=== PATIENT | male | born 1990 | race Caucasian/White ===

== ENCOUNTER → 2024-09-23 20:04 | Outpatient (CLI) | payer OTHER, SELFPAY ==
--- NOTE | 2024-09-23 20:08 | DI.MRI.S_ITS ---
PROCEDURE: MR FOOT LT WO/W CON INDICATIONS: ostemiolitis and pain TECHNIQUE: Noncontrast coronal T1 spin echo and STIR, sagittal T1 spin echo with fat saturation and STIR, axial T1 spin echo and T2 fast spin echo with fat saturation. After the administration of contrast, axial/sagittal/coronal T1 spin echo with fat saturation through the left foot.. COMPARISON: [facility], [place], [place] BONE SCAN 3 PHASE, 07/21/2024, 9:58. Outside Film, MR, MR FOOT LEFT WITHOUT CONTRAST, 04/19/2024, 15:18. FINDINGS: Image quality: Excellent. Bones: There is no marrow edema. No fracture or dislocation. No metatarsal stress fractures. No bony erosion or abnormal periosteal reaction. No area of abnormal intraosseous enhancement. Soft tissues: There is significant soft tissue swelling and edema over dorsum of midfoot and forefoot. No discrete drainable peripherally enhancing abscess collection. The visualized plantar foot muscles are normal in size and signal intensity. No area of abnormal intramuscular enhancement. Extensor and flexor tendons are intact. IMPRESSION: 1. Significant cellulitis over dorsum of midfoot and forefoot. No discrete drainable abscess collection. Plantar foot muscles are normal in size and signal. 2. No evidence of osteomyelitis. No fracture or dislocation. No suspicious intraosseous lesions. No area of abnormal intraosseous enhancement. Dictated by: Donnie Lamar M.D. on 09/26/2024 at 10:06 Approved by: Donnie Lamar M.D. on 09/26/2024 at 10:18
== END ==
LOC: MRI 20:06
PROVIDERS: PCP Registered Nurse; Referring Provider Podiatrist Foot & Ankle Surgery; Visit Provider Podiatrist Foot & Ankle Surgery
DX: L03.116 Cellulitis of left lower limb (principal); M79.672 Pain in left foot
CPT/HCPCS: 73720; A9579

== ENCOUNTER 2024-10-13 06:19 | Day surgery (SDC) | payer OTHER, SELFPAY ==
[2024-10-13] VITALS (25 sets, daily range): BP systolic 100–136; BP diastolic 51–87; PULSE 10–84; RESP 8–70; TEMP 36.1–36.6; O2SAT 92–100; BMI 31.1
--- NOTE | 2024-10-13 | PATH_ITS ---
[facility] Accession Number: [id number] No. of containers..03 Tissue . 01 Material submitted: . PART A: toe - LEFT SECOND TOE, BONE (BEFORE IRRIGATION) PART B: toe - LEFT SECOND TOE, BONE (AFTER IRRIGATION) PART C: toe - LEFT SECOND TOE, TISSUE (BEFORE IRRIGATION) . 01 Diagnosis: A. LEFT SECOND TOE, BONE (BEFORE IRRIGATION): Osteocartilaginous fragments with reactive and degenerative changes. No evidence of osteomyelitis. . B. LEFT SECOND TOE, BONE (AFTER IRRIGATION): Small fragment of unremarkable cartilage. . C. LEFT SECOND TOE, TISSUE (BEFORE IRRIGATION): Skin and underlying fibroconnective tissue with ulceration. [facility] 10/20/2024 1155 Local . 01 Electronically signed: . Ngozi Fitzgerald MD, Pathologist NPI- [id number] . 01 Gross description: . A. Received in formalin with two identifiers and left second toe bone before irrigation are two fragments of martino bone with articular surface and a small amount of attached soft tissue measuring 1.7 x 0.9 x 0.5 cm and 2.3 x1.5 x 1.0 cm. Sectioning reveals martino trabecular osseous tissue that is relatively difficult to section with a scalpel. Business Systems Analyst sections are submitted in A1 following decalcification. The remaining specimen is submitted in A2-A3 following decalfication. ([id number]) B. Received in formalin with two identifiers and left second toe bone after irrigation is a thin fragment of presumed bone, 0.7 x 0.5 x 0.1 cm. Submitted intact in B1 following brief decalcification. C. Received in formalin with two identifiers and left second toe tissue before irrigation is an unorientated irregular fragment of skin, 3.5 x 2.5 x 1.3 cm, with a red-martino ulcerated friable lesion located at the margin. The margin is inked blue. Business Systems Analyst sections are submitted in C1. ([id number]) /MRV 10/18/2024 1623 Local . 01 Pathologist provided ICD-10: M86.272, L97.522 . 01 CPT . 406301, 827767, 837819, [id number], [id number] Specimen Comment: A courtesy copy of this report has been sent to [facility] Performed at: [address] [facility] [address] [address], [place], [place] [id number] MD Fernando Gregorio MD Phone: [phone]
--- NOTE | 2024-10-13 06:05 | PM.PREOP ---
Pre-operative Note Interval Note History & Physical reviewed/Exam performed by Physician: Yes Changes to H&P: No
[2024-10-13] MEDS: LACTATED RINGERS 1,000 ML 42 ML IV (06:51)
[2024-10-13 07:35] LABS: Add Manual Diff / Slide Review NO; Basophils Absolute Auto 100 /uL (0-100); Basophils Percent Auto 1.6 % (0-2); Eosinophils Absolute Auto 200 /uL (0-450); Eosinophils Percent Auto 4.9 % (2-4); Hematocrit 33.1 % (41-53); Lymphocytes Absolute Auto 1700 /uL (1100-4500); Lymphocytes Percent Auto 33.2 % (25-40); Mean Corpuscular HGB Conc 33.2 % (30-36); Mean Corpuscular Hemoglobin 27.6 PG (26-34); Mean Corpuscular Volume 83.3 fL (80-100); Monocytes Absolute Auto 600 /uL (0-900); Monocytes Percent Auto 11.7 % (3-14); Neutrophils Absolute Auto 2400 /uL (1500-7000); Neutrophils Percent Auto 48.6 % (50-75); Platelet Count 255 X10^3/uL (150-400); Red Blood Cell Count 3.97 X10^6/uL (4.5-5.9); Red Cell Distribution Width 14.9 % (11.6-14.8)
--- NOTE | 2024-10-13 07:41 | SUR.PREOP ---
Multiple IV attempts x 2 rn's. labs partially drawn per lab. sed rate and cbc. Anesthesia attempting line now.
--- NOTE | 2024-10-13 07:58 | SUR.PREOP ---
Unsuccessful attempt per anesthesia. Dr Church aware of delay. EKG being performed.
--- NOTE | 2024-10-13 08:09 | SUR.PREOP ---
#20G left upper arm us guided ivper anesthesia, Juarez Moreno CRNA.
[2024-10-13] MEDS: FAMOTIDINE 20 MG/2 ML VIAL IV (08:11)
--- NOTE | 2024-10-13 08:12 | SUR.PREOP ---
anesthesia to give iv tylenol. po tylenol not given.
[2024-10-13 08:30] LABS: Erythrocyte Sedimentation Rate 19 MM/HR (0-15)
--- NOTE | 2024-10-13 09:14 | SUR.OPER ---
Supine on padded OR bed, head on pillow, arms secured on padded arm boards at <90 degrees abduction, legs uncrossed, safety belt at thigh, tape over blanket over lower legs.
--- NOTE | 2024-10-13 09:37 | SUR.PHASEII ---
Surgery aborted by anesthesia and surgeon due to infiltration of IV placed to left upper arm. Patient to Phase 2 from OR suite and placed on continous pulse oximeter. Per Anesthesia provider, patient may be discharged at 10:15 if vitals remain stable. Coffee provided. at bedside.
--- NOTE | 2024-10-13 10:50 | DI.CT.S_ITS ---
PROCEDURE: CT ANGIO ABD AORTA RUNOFF INDICATIONS: Surgical (post-op) exam TECHNIQUE: After the administration of intravenous contrast, 2.5 mm sections acquired from T12 to the feet, with optional delayed image acquisition from the knees to the feet. 3-dimensional maximum intensity projection (MIP) coronal and sagittal reformats, and/or 3-dimensional volume rendering reformatting was then performed. For radiation dose reduction, the following was used: automated exposure control. COMPARISON: [facility], MR, MR FOOT LT WO/W CON, 09/23/2024, 20:16. [facility], CT, CT ABD PELVIS W CON, 10/27/2016, 21:29. FINDINGS: Image quality: Diagnostic Lower chest: Bibasilar opacities are present. Small hiatal hernia. Borderline cardiomegaly. Liver: Unremarkable Gallbladder and biliary system: Unremarkable, nondilated Pancreas: No ductal dilation Spleen: Prominent at 13 cm Adrenals: No discrete nodules Kidneys: No hydronephrosis. No solid renal mass Vessels and lymph nodes: No significant stenosis or thromboembolic disease of the aortoiliac vessels, mesenteric arteries, or renal arteries. Mildly enlarged pelvic lymph nodes are present, for example in the right measuring up to 1.9 cm in the external iliac chain. These were also seen to some extent in 2017. Prominent retroperitoneal lymph nodes, likely extension of the same process. Venous systems are not well assessed on this study Bowel and peritoneum: No drainable abscess or ascites. No small bowel obstruction. Increased fecal loading. Nondilated appendix. Body wall: Small fat containing umbilical hernia Pelvis: Bladder is unremarkable. Prostate is unremarkable. Bones: No aggressive appearing pelvic or spinal abnormality. There are mild degenerative changes. Lower extremities: Bones: No acute displaced fracture. Left 2nd MTP amputation changes. Soft tissues: Diffuse subcutaneous edema and soft tissue thickening extending from the pelvis, bilateral thighs, and anterior lower legs. There is no drainable rim enhancing abscess. Enlarged inguinal lymph nodes are also seen. Vasculature: Overall patent femoral popliteal vasculature. Patent calf arteries, with three-vessel runoff on the right and 2 vessel runoff on the left. On the left, the AT/DP is relatively diminutive, not necessarily acute. There is hyperemic flow to the left lower extremity compared to the right. IMPRESSION: Two vessel runoff on the left. Relatively diminutive left AT/DP, which is not necessarily acute. Hyperemic flow is seen to the left lower extremity compared to the right. No significant aortoiliac or femoral popliteal disease bilaterally Left 2nd metatarsal amputation changes. Diffuse pelvic wall and lower extremity subcutaneous soft tissue thickening and edema, no drainable fluid collections identified. Enlarged pelvic and inguinal lymph nodes, indeterminate, differential includes reactive nodes. These were also partially seen in 2017 imaging Partially seen bibasilar pulmonary opacities. Dictated by: Uche Spears M.D. on 10/13/2024 at 15:05 Approved by: Uche Spears M.D. on 10/13/2024 at 15:18
--- NOTE | 2024-10-13 10:50 | SUR.PHASEII ---
PICC line inserted by DI Nurse to right upper arm. Dr Church and OR team notified. VSS. Notified of patient. VSS.
[2024-10-13] MEDS: VANCOMYCIN 1,000 MG in SODIUM CHLORIDE 0.9% 250 ML 250 MG IV (11:40)
[2024-10-13] MEDS: LIDOCAINE 1% 20 ML INJ (11:45)
[2024-10-13] MEDS: VANCOMYCIN 1,000 MG VIAL 1000 MG TOP (12:30)
[2024-10-13] MEDS: SODIUM CHLORIDE IRRIG SOLUTION 3,000 ML, GENTAMICIN 240 MG IRR (12:45)
--- NOTE | 2024-10-13 13:01 | EKG_ITS ---
[address] [address] [address] [address] Test Date: 2024-10-13 Pat Name: Guille Fox Department: Room: Gender: Male [employer]: Fito WORRELL : 1990 Requested By: Order Number: [id number] Reading MD: Cortes Nj MD Measurements Intervals [place] Rate: 69 P: 63 WI: 162 QRS: 30 QRSD: 88 T: 21 QT: 396 QTc: 424 Interpretive Statements Normal sinus rhythm Electronically Signed On 10-13-2024 13:59:49 PDT by Cortes Nj MD
--- NOTE | 2024-10-13 13:41 | EKG_ITS ---
[facility] [address] [place] [id number] Test Date: 2024-10-13 Pat Name: Guille Fox Department: [facility] Room: 216 Gender: Male Ent Surgeon: CB : 1990 Requested By: Order Number: [id number] Reading MD: Cortes Nj MD Measurements Intervals [place] Rate: 69 P: 49 OK: 172 QRS: 18 QRSD: 86 T: 17 QT: 414 QTc: 443 Interpretive Statements Normal sinus rhythm Electronically Signed On 10-14-2024 8:37:09 PDT by Cortes Nj MD
[2024-10-13 13:48] LABS: Alanine Aminotransferase 37 IU/L (<50); Albumin 3.8 g/dL (3.5-5.0); Albumin Globulin Ratio 1.3 (1.0-2.8); Alkaline Phosphatase 79 U/L (38-126); Aspartate Aminotransferase 34 IU/L (17-59); BUN Creatinine Ratio 19.8 (6-22); Bilirubin Total 0.3 mg/dL (0.2-1.3); Blood Urea Nitrogen 17 mg/dL (9-20); C-Reactive Protein Quant < 0.5 mg/dL (<1.0); Calcium 8.3 mg/dL (8.4-10.2); Carbon Dioxide 28 mmol/L (22-32); Chloride 104 mmol/L (98-107); Creatine Kinase 91 U/L (55-170); Estimated Glomerular Filt Rate > 60 mL/min (>60); Glucose 105 mg/dL (70-100); HEMOLYSIS < 15 (0-50); Potassium 4.5 mmol/L (3.4-5.1); Sodium 137 mmol/L (137-145); Total Protein 6.8 g/dL (6.3-8.2)
[2024-10-13 13:54] LABS: NT-proBNP (BNP-Adult 18+) < 20 pg/mL (<125)
[2024-10-13] MEDS: ACETAMINOPHEN IV 1,000 MG/100 ML VIAL 400 MG IV (14:03)
[2024-10-13 14:23] LABS: Ur Specific Gravity Normal (Normal); Urine pH Normal (Normal)
--- NOTE | 2024-10-13 14:23 | RT ---
at bedside with who extubated pt without incident. pt on room air with no distress noted. Alert and talking
[2024-10-13 14:24] LABS: Ur Creatinine Normal (Normal); Urine Amphetamines Positive (Negative); Urine Barbiturates Negative (Negative); Urine Benzodiazepines Positive (Negative); Urine Cocaine Negative (Negative); Urine MDMA Positive (Negative); Urine Methadone Negative (Negative); Urine Opiates Negative (Negative); Urine Oxycodone Negative (Negative); Urine Phencyclidine Negative (Negative); Urine THC Negative (Negative); Urine Tricyclic Antidepressant Negative (Negative)
--- NOTE | 2024-10-13 14:57 | PM.PNPO.1 ---
Subjective Subjective Interval history: Patient is a 33 yo male here for amputation of toe following an on-the-job injury one year ago. Complicated by attempt this morning to do surgery, unable to place IV after multiple attempts, case cancelled. PICC RN was able to place a midline in the pre-op area, case rescheduled for later in the day. Patient has no history of asthma/BEVERLEY, states he is not a smoker of tobacco. No history hypertension or any other cardiac issues, renal or liver problems, seizures/strokes or other neurological problems. Patient admits to a history of addiction to opioids, takes Suboxone. States his last dose was 4 days ago. Denies any other recent illicit drug use, marijuana or alcohol. Patient very slow to answer questions, somewhat drowsy. Also takes cilostazol and propranolol bid, last doses this morning. General anesthesia was induced, patient intubated. Patient immediately hypotensive with SBP 72-85and bradycardic with HR of 50, unresponsive to vasopressors, fluids, antimuscarinics, very minimal response to boluses of epinephrine. Surgeon informed. Patient run on minimal anesthesia, shut off at end of case. Thirty minutes later, patient remained unresponsive, not arrousable to sternal rub. Spontaneous respirations, good Vt, ETCO2 acceptable. Fentanyl 50mcg given at beginning of case. Patient's pupils very large but equal. No other responses to stimulus. Transported intubated to PACU. RT called, placed on CPAP via ventilator. Labs drawn, repeat 12-lead, urine toxicology screen ordered. BS 107. Surgeon at bedside, informed of status. Patient slowly began responding to stimuli 75 min post op. Following verbal commands, answering yes/no questions, but quickly falling back asleep. Pupils normal. Watched for 15 more minutes, patient stable, arrousable. Extubated without difficulty. Patient remained slow to answer, sleepy but otherwise stable, maintaining airway without difficulty. Patient transferred to floor for overnight admission. Exam Vital Signs (past 8 hours): - 10/13/24 06:59 10/13/24 09:25 10/13/24 09:30 Temperature 98 F 98 F Pulse Rate 84 69 73 Respiratory Rate 16 11 L 16 Blood Pressure 136/86 119/80 119/68 Pulse Oximetry 95 100 98 Oxygen Delivery Method Room Air Room Air Room Air Oxygen Flow Rate Fraction of Inspired Oxygen 10/13/24 10:51 10/13/24 12:50 10/13/24 12:55 Temperature 97.3 F L 97.3 F L Pulse Rate 82 61 60 Respiratory Rate 11 L 12 9 L Blood Pressure 104/65 102/51 L 105/58 L Pulse Oximetry 97 99 100 Oxygen Delivery Method Room Air Simple Mask Blow By Simple Mask Blow By Oxygen Flow Rate 9 9 Fraction of Inspired Oxygen 10/13/24 13:00 10/13/24 13:05 10/13/24 13:10 Temperature Pulse Rate 59 L 60 60 Respiratory Rate 8 L 10 L 8 L Blood Pressure 104/59 L 104/59 L 104/60 Pulse Oximetry 100 99 99 Oxygen Delivery Method Simple Mask Blow By Simple Mask Blow By Simple Mask Blow By Oxygen Flow Rate 9 9 9 Fraction of Inspired Oxygen 10/13/24 13:20 10/13/24 13:30 10/13/24 13:35 Temperature Pulse Rate 61 81 10 L Respiratory Rate 8 L 15 70 H Blood Pressure 100/61 122/67 117/80 Pulse Oximetry 99 98 98 Oxygen Delivery Method Simple Mask Blow By CPAP CPAP Oxygen Flow Rate 9 Fraction of Inspired Oxygen 10/13/24 13:38 10/13/24 13:40 10/13/24 13:45 Temperature 97.3 F L Pulse Rate 70 74 Respiratory Rate 11 L 16 Blood Pressure 115/68 121/70 Pulse Oximetry 99 99 Oxygen Delivery Method CPAP Room Air Oxygen Flow Rate Fraction of Inspired Oxygen 30 10/13/24 13:45 10/13/24 13:50 10/13/24 13:55 Temperature Pulse Rate 72 74 Respiratory Rate 16 14 Blood Pressure 104/58 L 120/65 Pulse Oximetry 99 97 95 Oxygen Delivery Method Room Air Room Air Oxygen Flow Rate Fraction of Inspired Oxygen 10/13/24 14:05 10/13/24 14:15 Temperature Pulse Rate 78 74 Respiratory Rate 13 14 Blood Pressure 130/87 106/65 Pulse Oximetry 96 95 Oxygen Delivery Method Room Air Room Air Oxygen Flow Rate 9 9 Fraction of Inspired Oxygen Fraction of Inspired Oxygen 30 Oxygen Delivery Method Room Air Oxygen Flow Rate 9 Resp Other: Post operatively taken to PACU intubated. Extubated 90 minutes later without difficulty. Objective ECG Impression: NSR. 12-lead EKG unchanged from pre-op. Labs 10/13/24 07:20 10/13/24 13:20 Labs: Laboratory Results - last 24 hr 10/13/24 10/13/24 10/13/24 07:20 13:16 13:20 WBC 5.0 RBC 3.97 L Hgb 11.0 L Hct 33.1 L MCV 83.3 MCH 27.6 MCHC 33.2 RDW 14.9 H Plt Count 255 Neut % (Auto) 48.6 L Lymph % (Auto) 33.2 [place] % (Auto) 11.7 Eos % (Auto) 4.9 H Baso % (Auto) 1.6 Neut # (Auto) 2400 Lymph # (Auto) 1700 [place] # (Auto) 600 Eos # (Auto) 200 Baso # (Auto) 100 ESR 19 H Sodium 137 Potassium 4.5 Chloride 104 Carbon Dioxide 28 BUN 17 Creatinine 0.86 Estimated GFR > 60 BUN/Creatinine Ratio 19.8 Glucose 105 H Calcium 8.3 L Total Bilirubin 0.3 AST 34 ALT 37 Alkaline Phosphatase 79 Total Creatine Kinase 91 C-Reactive Protein < 0.5 NT-Pro-B Natriuret Pep < 20 Total Protein 6.8 Albumin 3.8 Globulin 3.0 Albumin/Globulin Ratio 1.3 U Opiates 300ng/mL cut Negative Ur Oxycodone Screen Negative Urine Methadone Screen Negative Ur Barbiturates Screen Negative U Tricyclic Antidepress Negative Ur Phencyclidine Scrn Negative Ur Amphetamines Screen Positive H U Methamphetamines Scrn Positive H Ur MDMA Scrn (Ecstasy) Positive H U Benzodiazepines Scrn Positive H Urine Cocaine Screen Negative U Marijuana (THC) Screen Negative Urine pH Normal Urine Specific [place] Normal Ur Creatinine Normal [facility] History (Updated 10/13/24 @ 09:45 by Daylin Gonzalez RN) Substance abuse MRSA (methicillin resistant Staphylococcus aureus) infection (2023) Osteomyelitis (2023) Social History alcohol intake: current Assessment & Plan Post-op Postoperative Procedures: Procedures Operation Date: 10/13/24 07:45 Actual Procedure Side Surgeon p 2nd Toe Amputation & metatarsal excision Left Malik Church DPM Operation Date: 10/13/24 11:15 Actual Procedure Side Surgeon p 2nd Toe Amputation & metatarsal excision Left Malik Church DPM Postoperative day: 0
[2024-10-13] MEDS: HYDROMORPHONE 1 MG INJ IV ×2 (15:22→20:11)
--- NOTE | 2024-10-13 16:25 | PM.CN ---
History of Present Illness Consult details Date Patient Seen: 10/13/24 Time Patient Seen: 16:25 Chief complaint: SDC Reason for consult: Post op pain and difficulty extubating. Narrative: The patient is a 33-year-old male with a history of continuous opiate dependence he was on Suboxone chronically. He was status post amputation of the toe for a persistent foot infection. He was grown out MSSA and Pseudomonas in the past. He was followed by Dr. Calzada of ID at [facility]. The patient was difficult to extubate after his case, and only received etomidate. He converted oxycodone 1 day prior to his case if 15 mg Q 8 and stopped Suboxone 2 days prior. The patient ultimately did extubate in PACU in presents to the floor with stable vital signs and severe foot pain. He was given Dilaudid IV upon arrival. The patient had multiple substances on his UTox including methamphetamines but denies any use of any medications or drugs other than the oxycodone. I spoke with the surgeon, Dr. Church, and he did share ID recommendations as well as Dr. Mac of pain medicine in [place] recommendations for oxycodone 15 mg t.i.d. for postoperative pain and then after stopping for 2 days resumption of Suboxone when this is permissible. The patient lives with his girlfriend in [place]. The patient had a toe amputation for a chronic wound which apparently relates initially to a work injury that occurred in November 2023. The patient developed osteomyelitis and has received antibiotics from Infectious Disease. The patient has had IV antibiotics. Apparently he then developed osteomyelitis and was treated with hyperbaric oxygen in May and June. The infection has worsened and ultimately Podiatry recommended a toe amputation, this happened today. The operative note is not available for review at the time of this consult. Meds Home Medications and Allergies Home Medications Medication Instructions Recorded Confirmed Type buprenorphine 8 mg-naloxone 2 mg 1 film buccal TID 09/23/24 09/23/24 History sublingual film duloxetine 60 mg capsule,delayed 60 mg PO DAILY 09/23/24 10/13/24 History release gabapentin 600 mg tablet 600 mg PO TID 09/23/24 10/13/24 History propranolol 40 mg tablet 40 mg PO BID 09/23/24 10/13/24 History sulfamethoxazole 800 1 tab PO BID 09/23/24 09/23/24 History mg-trimethoprim 160 mg tablet (Bactrim DS) cefadroxil 1 gram tablet 1,000 mg PO BID #60 tabs 10/12/24 10/13/24 Rx cilostazol 50 mg tablet 50 mg PO BID 10/12/24 10/13/24 History buprenorphine 8 mg-naloxone 2 mg 10 mg sublingual 3XD 10/13/24 10/13/24 History sublingual film Allergies Allergy/AdvReac Type Severity Reaction Status Date / Time No Known Drug Allergies Allergy Verified 10/13/24 06:41 Review of Systems Review of Systems Narrative: All else reviewed and otherwise unremarkable except as noted in the history and physical. Exam Vital Signs (past 8 hours): - 10/13/24 09:25 10/13/24 09:30 10/13/24 10:51 Temperature 98 F Pulse Rate 69 73 82 Respiratory Rate 11 L 16 11 L Blood Pressure 119/80 119/68 104/65 Pulse Oximetry 100 98 97 Oxygen Delivery Method Room Air Room Air Room Air Oxygen Flow Rate Fraction of Inspired Oxygen 10/13/24 12:50 10/13/24 12:55 10/13/24 13:00 Temperature 97.3 F L 97.3 F L Pulse Rate 61 60 59 L Respiratory Rate 12 9 L 8 L Blood Pressure 102/51 L 105/58 L 104/59 L Pulse Oximetry 99 100 100 Oxygen Delivery Method Simple Mask Blow By Simple Mask Blow By Simple Mask Blow By Oxygen Flow Rate 9 9 9 Fraction of Inspired Oxygen 10/13/24 13:05 10/13/24 13:10 10/13/24 13:20 Temperature Pulse Rate 60 60 61 Respiratory Rate 10 L 8 L 8 L Blood Pressure 104/59 L 104/60 100/61 Pulse Oximetry 99 99 99 Oxygen Delivery Method Simple Mask Blow By Simple Mask Blow By Simple Mask Blow By Oxygen Flow Rate 9 9 9 Fraction of Inspired Oxygen 10/13/24 13:30 10/13/24 13:35 10/13/24 13:38 Temperature Pulse Rate 81 10 L Respiratory Rate 15 70 H Blood Pressure 122/67 117/80 Pulse Oximetry 98 98 Oxygen Delivery Method CPAP CPAP Oxygen Flow Rate Fraction of Inspired Oxygen 30 10/13/24 13:40 10/13/24 13:45 10/13/24 13:45 Temperature 97.3 F L Pulse Rate 70 74 Respiratory Rate 11 L 16 Blood Pressure 115/68 121/70 Pulse Oximetry 99 99 99 Oxygen Delivery Method CPAP Room Air Oxygen Flow Rate Fraction of Inspired Oxygen 10/13/24 13:50 10/13/24 13:55 10/13/24 14:05 Temperature Pulse Rate 72 74 78 Respiratory Rate 16 14 13 Blood Pressure 104/58 L 120/65 130/87 Pulse Oximetry 97 95 96 Oxygen Delivery Method Room Air Room Air Room Air Oxygen Flow Rate 9 Fraction of Inspired Oxygen 10/13/24 14:15 10/13/24 14:30 10/13/24 15:00 Temperature 97.1 F L 97.7 F Pulse Rate 74 72 77 Respiratory Rate 14 16 15 Blood Pressure 106/65 118/71 126/66 Pulse Oximetry 95 96 95 Oxygen Delivery Method Room Air Oxygen Flow Rate 9 0 0 Fraction of Inspired Oxygen 10/13/24 15:30 Temperature 97.4 F L Pulse Rate 69 Respiratory Rate 15 Blood Pressure 125/68 Pulse Oximetry 98 Oxygen Delivery Method Oxygen Flow Rate 0 Fraction of Inspired Oxygen Fraction of Inspired Oxygen 30 Oxygen Delivery Method Room Air Oxygen Flow Rate 0 Narrative Exam Narrative: NAD, alert and oriented, fluent speech, calm. Normocephalic skull, EOMI, anicteric sclera, symmetric pupils. Oropharynx unremarkable, no droop. Neck supple, midline trachea, no adenopathy. Lungs clear, normal rate and effort. Heart regular, no murmur gallop or rub. Abdomen is soft, non distended and non tender. Extremities are free of edema. Skin is free of rash or lesions. Joints are not swollen or deformed. Judgment appears to be normal. Left foot is wrapped. Patient was extensive chronic stigmata of drug use on the inner aspects and anterior aspects of both thighs. Objective Imaging Multiple studies:: Radiologist's impression: Aorta with runoff CTA, October 13: Two vessel runoff on the left. Relatively diminutive left AT/DP, which is not necessarily acute. Hyperemic flow is seen to the left lower extremity compared to the right. No significant aortoiliac or femoral popliteal disease bilaterally Left 2nd metatarsal amputation changes. Diffuse pelvic wall and lower extremity subcutaneous soft tissue thickening and edema, no drainable fluid collections identified. Enlarged pelvic and inguinal lymph nodes, indeterminate, differential includes reactive nodes. These were also partially seen in 2017 imaging Partially seen bibasilar pulmonary opacities. Foot MRI, September 23: 1. Significant cellulitis over dorsum of midfoot and forefoot. No discrete drainable abscess collection. Plantar foot muscles are normal in size and signal. 2. No evidence of osteomyelitis. No fracture or dislocation. No suspicious intraosseous lesions. No area of abnormal intraosseous enhancement. Dictated by: Donnie Lamar M.D. on 09/26/2024 at 10:06 Approved by: Donnie Lamar M.D. on 09/26/2024 at 10:18 ADDENDUM: There is T2 hyperintense signal seen involving 2nd distal phalanx without associated T1 hypointense signal. No obvious bony erosive changes. Questionable enhancement is noted within 2nd distal phalanx. Finding may represent artifacts due to the position of the foot and patient motion. Early osteomyelitis involving 2nd distal phalanx cannot be excluded. Clinical correlation is recommended. There are no signs of septic arthritis Labs 10/13/24 07:20 10/13/24 13:20 Labs: Laboratory Results - last 24 hr 10/13/24 10/13/24 10/13/24 07:20 13:16 13:20 WBC 5.0 RBC 3.97 L Hgb 11.0 L Hct 33.1 L MCV 83.3 MCH 27.6 MCHC 33.2 RDW 14.9 H Plt Count 255 Neut % (Auto) 48.6 L Lymph % (Auto) 33.2 Bond % (Auto) 11.7 Eos % (Auto) 4.9 H Baso % (Auto) 1.6 Neut # (Auto) 2400 Lymph # (Auto) 1700 Bond # (Auto) 600 Eos # (Auto) 200 Baso # (Auto) 100 ESR 19 H Sodium 137 Potassium 4.5 Chloride 104 Carbon Dioxide 28 BUN 17 Creatinine 0.86 Estimated GFR > 60 BUN/Creatinine Ratio 19.8 Glucose 105 H Calcium 8.3 L Total Bilirubin 0.3 AST 34 ALT 37 Alkaline Phosphatase 79 Total Creatine Kinase 91 C-Reactive Protein < 0.5 NT-Pro-B Natriuret Pep < 20 Total Protein 6.8 Albumin 3.8 Globulin 3.0 Albumin/Globulin Ratio 1.3 U Opiates 300ng/mL cut Negative Ur Oxycodone Screen Negative Urine Methadone Screen Negative Ur Barbiturates Screen Negative U Tricyclic Antidepress Negative Ur Phencyclidine Scrn Negative Ur Amphetamines Screen Positive H U Methamphetamines Scrn Positive H Ur MDMA Scrn (Ecstasy) Positive H U Benzodiazepines Scrn Positive H Urine Cocaine Screen Negative U Marijuana (THC) Screen Negative Urine pH Normal Urine Specific [place] Normal Ur Creatinine Normal PFSH Medical History Substance abuse MRSA (methicillin resistant Staphylococcus aureus) infection (2023) Osteomyelitis (2023) Social History marital status: unmarried,living together pets and animals: Yes (1 Nimisha) Tobacco & Substance Use Smoking Status: Former smoker alcohol intake: current Assessment & Plan Assessment & Plan narrative: 1. 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 Present on admission and active. 2. Concern for osteomyelitis, present on admission and active. 3. Continuous opiate dependence, present on admission and active. Recently on Suboxone. 4. Concern for polysubstance abuse based on a urine toxicity screen. Plan: -treat pain tonight with oxycodone 15 q.6 as needed, Dilaudid IV as needed pain. -infectious Disease has requested IV antibiotics tonight, cefepime and daptomycin at 8 milligrams/kilogram IV daily. Recent cultures had review Pseudomonas, S MSSA, and Corynebacterium by PCR. -the patient remains [facility] [place] status, pending review tomorrow morning of clinical course. The patient was full resuscitation. This case was discussed directly with the surgeon, Dr. Church, and the infectious disease doctor, Dr. Calzada. This patient might require more extensive treatment with IV antibiotics for soft tissue infection based on imaging studies today, and clinical status. We will assess whether or not he would be appropriate for inpatient status within the next 24 hours. Time-Based Coding :: 45 min spent with patient and on the chart (including review of chart, obtaining history, exam, reviewing outside data, placing orders, documenting exam and treatment plan, and counseling patient) on 10/13.
--- NOTE | 2024-10-13 16:38 | DI.US.S_ITS ---
PROCEDURE: US PERIPH VENOUS LOW EXTREM BI INDICATIONS: EDEMA TECHNIQUE: Real-time imaging, as well as color and pulse Doppler interrogation, were performed of the deep veins of both legs from the inguinal ligament to the popliteal fossa, with documentation of the visualized calf veins. COMPARISON: None. FINDINGS: Right: The common femoral, femoral, popliteal, and the visualized calf veins are normally compressible, and free of intraluminal thrombus. Color and pulse Doppler demonstrate normal phasic intravascular flow. There is normal augmentation response to distal compression maneuver. Left: The common femoral, femoral, popliteal, and the visualized calf veins are normally compressible, and free of intraluminal thrombus. Color and pulse Doppler demonstrate normal phasic intravascular flow. There is normal augmentation response to distal compression maneuver. Calf veins are not well seen. Enlarged lymph nodes in the bilateral groins measuring up to 6.4 x 5.5 x 1.4 cm on the right and 2.9 x 1.6 x 1.3 cm on the left. IMPRESSION: No findings of deep venous thrombosis in either lower extremity. Enlarged inguinal lymph nodes as above. Dictated by: Karlos Landeros M.D. on 10/13/2024 at 18:32 Approved by: Karlos Landeros M.D. on 10/13/2024 at 18:33
[2024-10-13] MEDS: GABAPENTIN 600 MG TABLET PO ×2 (16:44→20:10)
[2024-10-13] MEDS: OXYCODONE IR 10 MG TABLET 15 MG PO ×2 (16:44→22:56)
[2024-10-13] MEDS: CEFEPIME 2 GM in SODIUM CHLORIDE 0.9% 100 ML IV (17:29)
[2024-10-13] MEDS: CHLORHEXIDINE GLUCONATE 15 ML CUP PO (17:29)
[2024-10-13] MEDS: SODIUM CHLORIDE 0.9% IV (18:24)
[2024-10-13] MEDS: DAPTOMYCIN IV (18:24)
[2024-10-13] MEDS: PROPRANOLOL 10 MG TABLET 40 MG PO (20:10)
[2024-10-13] MEDS: SENNOSIDES 8.6 MG TABLET 17.2 MG PO (20:10)
[2024-10-13] MEDS: DOCUSATE 100 MG CAPSULE PO (20:10)
[2024-10-13] MEDS: SODIUM CHLORIDE 0.9% FLUSH 10 ML IV (20:12)
[2024-10-13] MEDS: ACETAMINOPHEN 325 MG TABLET 650 MG PO (22:56)
[2024-10-14] MEDS: CHLORHEXIDINE GLUCONATE 15 ML CUP PO ×2 (00:35→05:44)
[2024-10-14] MEDS: CEFEPIME 2 GM in SODIUM CHLORIDE 0.9% 100 ML IV ×2 (01:06→09:56)
[2024-10-14] MEDS: HYDROMORPHONE 1 MG INJ IV ×7 (01:15→16:21)
--- NOTE | 2024-10-14 06:20 | PM.OP.1 ---
Operative Date/Time/Diagnoses Date of procedure: 10/13/24 Pre-op diagnosis: 1. Left second toe chronic ulcer 2. Left second toe infection (soft tissue and bone) 3. Left foot pain Post-op diagnosis: same Procedure & Clinicians Procedure: 1. Left second toe amputation 2. Left second metatarsal head ostectomy Same procedure as scheduled: Yes Indications: Pain with chronic non-healing ulcer and infections Surgeon: Malik Church Click Yes if Unassisted: Yes Anesthesia Type: Local Operative Notes Closure Type: primary Specimen(s): other (1. Soft tissue to pathology and micrology before irrigation. 2. Bone to pathology and microbiology before irrigation. 3. Bone to pathology and microbiology after irrigation. 4. Swab to microbiology after irrigation.) Estimated Blood Loss (mL): 25 Procedure in detail: Patient was identified and brought into the operating room. Patient was in supine position for the duration of procedure. An ankle tourniquet was applied but not inflated for this case. Left foot was prepped and draped in the usual sterile fashion, followed by official timeout with the surgical team all in agreement. Attention was carried to the left second toe with chronic ulcer. A racquet incision was drawn and carried out using # 15 scalpel down to the bone and joint, which was disarticulated at the metatarsophalangeal joint. Removed toe was dissected with bisection at midline on the back table, and removed phalanges and soft tissue were sent to pathology and microbiology respectively. Removed toe was notable for extensive scar tissue and necrotic fat. Open surgical site was irrigated using 3 liters of saline mixed with 240 mg gentamicin solution. All outer gloves were replaced with new sterile glove, and previously used instruments were set aside. A sagittal saw was used to remove a sliver of metatarsal head, which was sent to both microbiology and pathology for proximal margin after irrigation. A deep wound culture of the open surgical site was also obtained, followed by placement of vancomycin powder prior to closure using 3-0 vicryl and 3-0 prolene. Procedure site was cleaned, and bulky sterile dressing was applied using iodine soaked Adaptic, gauze, and Kerlix. A posterior splint was made and fitted over well-padded surface with cast padding and abdominal pad. Surgery was uncomplicated, and patient was extubated in PACU 90 minutes later. Complications: none Post-operative Condition: stable Disposition: observation Plan for aftercare: Non-weight bearing to surgical limb. Elevative above heart on 2+ pillows. Ice behind knee 15 minutes/hour.
[2024-10-14] MEDS: DULOXETINE 30 MG CAPSULE 60 MG PO (08:12)
[2024-10-14] MEDS: PROPRANOLOL 10 MG TABLET 40 MG PO (08:12)
[2024-10-14] MEDS: ENOXAPARIN 40 MG/0.4 ML SYRINGE SUBCUT (08:12)
[2024-10-14] MEDS: GABAPENTIN 600 MG TABLET PO ×2 (08:12→14:47)
[2024-10-14] MEDS: DOCUSATE 100 MG CAPSULE PO (08:12)
[2024-10-14 08:15] VITALS: O2SAT 96
[2024-10-14 08:25] VITALS: BP 112/61; PULSE 69; RESP 15; TEMP 36.4; O2SAT 96
--- NOTE | 2024-10-14 12:03 | OT.IPNOTE ---
Attempted OT eval and pre pt states has no OT needs and mainly just concerned with getting a FWW and to be able to try steps with a cane. Nursing able to put in PT eval orders. Pt given DME equipment list. Requested orders for FWW for pt. NO charge.
--- NOTE | 2024-10-14 12:37 | CM.DANOTE ---
Addendum entered by SANDY Hill 10/14/24 16:15: DCP Continued: Per PT, FWW is dispensed and provided at bedside. Pt is now requesting a prescription for an iWalk handsfree knee crutch. DCP notified hospitalist of this request, recommended that pt follow up with podiatry surgeon about this. DCP called some [employer] library resources who loan equipment: DCP called [employer] in [place], it is reported they do not have iWalk in their inventory. DCP called [employer], it is reported they do not have iWalk in their inventory. DCP called [facility] in [place], it is reported they do not have iWalk in their inventory. DCP called [facility], it is reported they do not have iWalk in their inventory. DCP re-entered room, provided DME resource list (noted which locations have been queried about iWalk in inventory) and [place] non-emergency phone number for lift assist if necessary, pt appreciative. 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 Pt denies any other needs at this time, DCP answered all questions and concerns to best of ability. Plan: Pt to dc home with , has FWW to utilize until follow up with Developmental Specialist on Thursday, 10/17. MARCIA Aranda Original Note: DCP Assessment Note: Pt is a 33yo male, resident of [place], is POD1 left toe amputation due to an infection. Pt lives in an apartment with his spouse, Alison Cunningham. Pt's Primary Care Provider is Dr. Leo Collins and insurance is [employer] and [employer]. Reviewed chart and discussed with multidisciplinary team pt's medical status and initial discharge needs. DCP met w/patient at bedside; introduced self and role. Patient was found in bed, kept eyes closed but cooperative with assessment. Pt's , Alison, was present and pt consented for her to be primary historian. Pt and confirmed living situation, stating they live in an apartment with 15-20 steps to their unit. Pt expressed preference in discharge home when pain is managed (currently at a 8 and getting IV pain meds every two hours). Pt also requesting a cane or walker to be dispensed via his insurance to assist with the steps up to his apartment, he has a knee scooter he is renting from the wound clinic (due back next week). DCP consulted with hospitalist who gave verbal orders for PT/OT consultation. Per OT, pt would benefit from FWW and discussion with PT. DCP placed FWW orders as well. Plan:Discharge orders are in, anticipating dc home with spouse to transport when medically cleared. CM team will follow closely for coordination of discharge plans. Sheila Hicks TREKKING GUIDE Discharge Planning/Care Management CM Discharge Assessment Start: 10/14/24 10:57 Freq: Status: Active Protocol: Document 10/14/24 10:57 MW (Rec: 10/14/24 11:01 MW Desktop) Discharge Planning Assessment Assigned Chief Wellness Officer SANDY Sosa DPOA/Assigned Designee Name Alison Cunningham, Spouse Contact Information [phone] Advance Directives? No Advance Directives on File No History Provided By Patient,Family Member,Medical Record Has Patient been admitted in last 30 No days? Prior Living Arrangements Apartment/Condo Comment [place] Household Members spouse Type of transporation used prior to Relies on Others admit Independent with ADL's Yes Is patient alert and oriented? Yes Caregiver for Another No Comment Renting a knee scooter from wound clinic, has a walking boot. Requesting a cane/ Rollator to assist with going up stairs. Barriers to Discharge No Discharge Plan Home Transportation Arrangement Spouse can drive home Additional Comment DME resource list provided Whiteboard Updated in Patient Room with Yes name and ext. # of Chief Wellness Officer Review Status In Process Please Provide Date Initial DC 10/14/24 Assessment Was Performed Next Review Type Continued Stay Review
--- NOTE | 2024-10-14 13:01 | P.DS_ITS ---
History of Present Illness History of Present Illness Date Patient Seen: 10/14/24 Time Patient Seen: 09:15 Chief complaint: SDC Narrative: The patient is a 33-year-old male with a history of continuous opiate dependence he was on Suboxone chronically. He was status post amputation of the toe for a persistent foot infection. He was grown out MSSA and Pseudomonas in the past. He was followed by Dr. Calzada of ID at [facility]. The patient was difficult to extubate after his case, and only received etomidate. He converted oxycodone 1 day prior to his case if 15 mg Q 8 and stopped Suboxone 2 days prior. The patient ultimately did extubate in PACU in presents to the floor with stable vital signs and severe foot pain. He was given Dilaudid IV upon arrival. The patient had multiple substances on his UTox including methamphetamines but denies any use of any medications or drugs other than the oxycodone. I spoke with the surgeon, Dr. Church, and he did share ID recommendations as well as Dr. Mac of pain medicine in [place] recommendations for oxycodone 15 mg t.i.d. for postoperative pain and then after stopping for 2 days resumption of Suboxone when this is permissible. The patient lives with his girlfriend in [place]. The patient had a toe amputation for a chronic wound which apparently relates initially to a work injury that occurred in November 2023. The patient developed osteomyelitis and has received antibiotics from Infectious Disease. The patient has had IV antibiotics. Apparently he then developed osteomyelitis and was treated with hyperbaric oxygen in May and June. The infection has worsened and ultimately Podiatry recommended a toe amputation, this happened today. The operative note is not available for review at the time of this consult. Discharge Providers Provider Discharge Date: 10/14/24 Primary care physician: Leo Collins ND Consults: 10/13/24 15:35 Consult to HUMAN RESOURCE CONSULTANT - Corporate Communications Manager Routine Comment: Corporate Communications Manager Consult needed for:: Unemployed Other reason (Comment) Comment: pt states he is unable to work due to injury and is concerned about losing housing 10/14/24 11:13 Consult to Occupational Therapy Evaluate & Treat Comment: Physician Instructions: Evaluate and treat 10/14/24 11:44 Consult to Physical Therapy Evaluate & Treat Comment: Physician Instructions: Evaluate and Treat 10/14/24 12:03 Consult to Physical Therapy Evaluate & Treat Comment: DME (Cane/FWW) needed for stairs and ambulation Physician Instructions: Evaluate and Treat Discharge provider: Nickolas Brooks MD Summary Hospital Course Discharge Diagnosis: 1. 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 Present on admission and active. 2. Concern for osteomyelitis, present on admission and active. 3. Continuous opiate dependence, present on admission and active. 4. Concern for polysubstance abuse based on a urine toxicity screen. Hospital Course: The patient was admitted and observed overnight. He was continued on his usual oxycodone as well as IV Dilaudid for postoperative pain. Given appropriate surgical management of his infection patient was discharged on oral antibiotics with outpatient follow-up of cultures and determination of further treatment per Infectious Disease recommended, in discussion with Dr. Church by phone prior to discharge. Physical therapy assisted with appropriate DME for ambulation following discharge. The patient has a addiction medicine physician prescribing Suboxone and pain management per Podiatry at discharge. The patient acknowledged understanding, agreement and appreciation of this plan of care. Status at Discharge Cognitive/behavioral status at discharge: oriented Functional status at discharge: uses cane/walker Overall status at discharge: patient is back to baseline Time Spent with Patient Time spent: Less than 30 minutes Exam Vital Signs (past 8 hours): - 10/14/24 08:15 10/14/24 08:25 Temperature 97.6 F Pulse Rate 69 Respiratory Rate 15 Blood Pressure 112/61 Pulse Oximetry 96 96 Oxygen Delivery Method Room Air Oxygen Flow Rate 0 Fraction of Inspired Oxygen 30 Oxygen Delivery Method Room Air Oxygen Flow Rate 0 Narrative Exam Narrative: NAD, alert and oriented, fluent speech, calm. Normocephalic skull, EOMI, anicteric sclera, symmetric pupils. Oropharynx unremarkable, no droop. Neck supple, midline trachea, no adenopathy. Lungs clear, normal rate and effort. Heart regular, no murmur gallop or rub. Abdomen is soft, non distended and non tender. Extremities are free of edema. Skin is free of rash or lesions. Joints are not swollen or deformed. Judgment appears to be normal. Left foot is wrapped. Patient was extensive chronic stigmata of drug use on the inner aspects and anterior aspects of both thighs. Objective Imaging Multiple studies:: Radiologist's impression: Aorta with runoff CTA, October 13: Two vessel runoff on the left. Relatively diminutive left AT/DP, which is not necessarily acute. Hyperemic flow is seen to the left lower extremity compared to the right. No significant aortoiliac or femoral popliteal disease bilaterally Left 2nd metatarsal amputation changes. Diffuse pelvic wall and lower extremity subcutaneous soft tissue thickening and edema, no drainable fluid collections identified. Enlarged pelvic and inguinal lymph nodes, indeterminate, differential includes reactive nodes. These were also partially seen in 2017 imaging Partially seen bibasilar pulmonary opacities. Foot MRI, September 23: 1. Significant cellulitis over dorsum of midfoot and forefoot. No discrete drainable abscess collection. Plantar foot muscles are normal in size and signal. 2. No evidence of osteomyelitis. No fracture or dislocation. No suspicious intraosseous lesions. No area of abnormal intraosseous enhancement. There is T2 hyperintense signal seen involving 2nd distal phalanx without associated T1 hypointense signal. No obvious bony erosive changes. Questionable enhancement is noted within 2nd distal phalanx. Finding may represent artifacts due to the position of the foot and patient motion. Early osteomyelitis involving 2nd distal phalanx cannot be excluded. Clinical correlation is recommended. There are no signs of septic arthritis Labs 10/13/24 07:20 10/13/24 13:20 Labs: Laboratory Results - last 24 hr 10/13/24 10/13/24 13:16 13:20 Sodium 137 Potassium 4.5 Chloride 104 Carbon Dioxide 28 BUN 17 Creatinine 0.86 Estimated GFR > 60 BUN/Creatinine Ratio 19.8 Glucose 105 H Calcium 8.3 L Total Bilirubin 0.3 AST 34 ALT 37 Alkaline Phosphatase 79 Total Creatine Kinase 91 C-Reactive Protein < 0.5 NT-Pro-B Natriuret Pep < 20 Total Protein 6.8 Albumin 3.8 Globulin 3.0 Albumin/Globulin Ratio 1.3 U Opiates 300ng/mL cut Negative Ur Oxycodone Screen Negative Urine Methadone Screen Negative Ur Barbiturates Screen Negative U Tricyclic Antidepress Negative Ur Phencyclidine Scrn Negative Ur Amphetamines Screen Positive H U Methamphetamines Scrn Positive H Ur MDMA Scrn (Ecstasy) Positive H U Benzodiazepines Scrn Positive H Urine Cocaine Screen Negative U Marijuana (THC) Screen Negative Urine pH Normal Urine Specific [employer] Normal Ur Creatinine Normal [facility] Medical History MRSA (methicillin resistant Staphylococcus aureus) infection (2023) Osteomyelitis (2023) Substance abuse Social History marital status: unmarried,living together household members: spouse pets and animals: Yes (1 Nimisha) Smoking Status: Former smoker alcohol intake: current Discharge Plan Discharge Plan Patient Disposition: Home Discharge orders & Medications Discharge Orders: Discharge (Order); Ordered 10/13/24 Ordered By: Malik Church Prescriptions: New cefadroxil 1 gram tablet 1,000 mg PO BID Qty: 60 0RF Continued gabapentin 600 mg Tablet 600 mg PO TID propranolol 40 mg Tablet 40 mg PO BID duloxetine 60 mg Capsule,Delayed Release(Dr/Ec) 60 mg PO DAILY buprenorphine-naloxone 8-2 mg Film 1 film BUCCAL TID sulfamethoxazole-trimethoprim [Bactrim DS] 800-160 mg Tablet 1 tab PO BID cilostazol 50 mg Tablet 50 mg PO BID buprenorphine-naloxone 8-2 mg film 10 mg sublingual 3XD Follow up/Referrals: Leo Collins ARNP [Primary Care Provider] - Diet/Activity/Treatments Diet: Diet as Tolerated and Regular Activity: Non-weight bearing to surgical limb. Elevate surgical limb above heart on 2+ pillows. Cold/Heat Therapy: Ice behind knee 15 minutes/hour when awake. Skin/Wound/Dressing Care Report to your healthcare provider any signs of infection, such as:: chills, fever, night sweats, increased pain, unusual drainage and unusual redness Dressing: Keep dressing clean, dry, and intact. Visit Report/Discharge Packet Stand Alone Forms: Patient Portal/API Discharge Data Primary Care Provider: Leo Collins Attending Provider: Malik Church [facility] MIPS - Admit I confirm the patient?s Advance Care Plan is present, Code status is documented, Surrogate decision maker is in patient?s record [If Yes, STOP here]: Yes MIPS - Meds 'Current medications' to include all prescriptions, [id number] products, herbals, cannabis/cannabidiol products, and vitamin/mineral/dietary (nutritional) supplements. I have utilized all available resources to obtain, update, or review the patient?s current medications. [If Yes, STOP here]: Yes MIPS - DC The patient has a history of heart transplant or Left Ventricular Assist Device (LVAD). If yes, STOP here.: No The patient has current or prior documentation of left ventricular ejection fraction (LVEF) less than or equal to 40%, or moderate or severely depressed left ventricular systolic function.: No A. The patient was prescribed or already taking an Angiotensin-Converting Enzyme (NAKIA) Inhibitor, or Angiotensin Receptor Theresa (ARB).: No B. The patient was prescribed or already taking a beta-theresa. [If Yes to Both A & B, STOP here]: Yes Patient not prescribed/taking NAKIA or ARB, no reason given.: No Patient not prescribed/taking beta-theresa, no reason given.: No PROFEE Charge Codes Discharge inpatient/observation: [id number]
--- NOTE | 2024-10-14 14:30 | PT.IIE ---
Current Diagnoses Non-pressure chronic ulcer of other part of left foot with fat layer exposed (10/13/24) Subacute osteomyelitis, left ankle and foot (10/13/24) Surgery Performed Operation Date: 10/13/24 07:45 Actual Procedures p 2nd Toe Amputation & metatarsal excision(Left) - Malik Church DPM Operation Date: 10/13/24 11:15 Actual Procedures p 2nd Toe Amputation & metatarsal excision(Left) - Malik Church DPM Medical History (Last Reviewed 10/14/24 @ 13:05 by Nickolas Brooks MD) MRSA (methicillin resistant Staphylococcus aureus) infection (2023) Osteomyelitis (2023) Substance abuse Physical Therapy Inpatient Evaluation/Re-Eval M1 PT/OT-IP Prior Functional Status Start: 10/14/24 15:51 Freq: NEEDED Status: Active Protocol: Document 10/14/24 14:30 AB (Rec: 10/14/24 16:35 AB [id number]) Medical Review Prior Functional Status Medical History Reviewed Yes Communication able to make needs known Mobility and Gait pt stated that he was modified independent with all mobility without AD prior to L foot problem but now has been NWB on LLE with walking boot for ~ 6 months. stated that he has been using a knee scooter. spouse stated that he was NWB on LLE but is allowed some weight when up and walking Social History Household Members spouse Living Arrangements Apartment/Condo Number of Floors (Floors) One Floor Number of Stairs To Enter/Railing? 15 steps R rail ascending to enter the house Home Environment Standard Height Toilet,Tub/ Shower,Tub/Shower Doors Home Equipment Crutches Additional Social History Comment pt has a knee scooter: rental and stated that rental is only until 10/20/24 M2 PT-IP Current Condition Start: 10/14/24 15:51 Freq: NEEDED Status: Active Protocol: Document 10/14/24 14:30 AB (Rec: 10/14/24 16:35 AB [id number]) Physical Therapy Current Condition Current Condition Evaluation Date 10/14/24 Treatment Diagnosis s/p L 2nd toe amputation; difficulty in walking Onset Date 10/13/24 M3 PT-IP Subjective Start: 10/14/24 15:51 Freq: NEEDED Status: Active Protocol: Document 10/14/24 14:30 AB (Rec: 10/14/24 16:35 AB [id number]) Subjective Physical Therapy Visit Type Type Initial Evaluation Visit Start Time 14:30 Visit Stop Time 15:30 Number of GENERAL MANAGER LAND DEPARTMENT Visits 0 Physical Therapy Visit Comments Patient Comments agreeable to do PT Therapy Pain Assessment Pain When Pain Assessed At Rest Location left foot Intensity 8 Scale Used Numeric (0 - 10) Pain Management Techniques Distraction,Modification of Treatment,Re-positioning, Timing of Activity with Medications M4 PT-IP Mobility and Gait Start: 10/14/24 15:51 Freq: NEEDED Status: Active Protocol: Document 10/14/24 14:30 AB (Rec: 10/14/24 16:35 AB [id number]) PT-Bed Mobility Assessment Supine to Sit Supine to Sit Independent Sit to Supine Sit to Supine Independent PT-Transfer Assessment Sit to and From Stand Sit to and from Stand Standby Assistance,1 Person Assistance,Use of Upper Extremities Equipment Transfer Assistive Device Gait Belt,Front Wheeled Walker Orthotic/Prosthetic Devices or Brace: Yes Comments Mobility Comments pt in bed and spouse in room. obtained PLOF and home set up. pt stated that he wants a FWW to ambulate indoors since he does not want to bring the knee scooter all the way up the stairs. pt stated that he has crutches at home and has tried using crutches to do stairs before but he does not feel safe using crutches; stated that if he has an iwalk knee scooter he will be fine. Pt is wanting an Iwalk knee crutch for him to be able to do the stairs stated that the Iwalk knee crutch was suggested by his wound doctor. informed pt that he needs an order from his doctor for the Iwalk knee crutch and the hospital does not have that AD . spouse stated that they did not order an iwalk knee crutch prior to sx because they want L&I to cover it. informed pt and spouse that pt may need a cabulance to d/c home. spouse stated that, what about when pt goes to his follow appointments with his doctor. pt and spouse expresses frustrations about equipment and dc needs to go home. Assessed pt mobility and is independent with bed mobility. able to use knee scooter and FWW SBA. ambulated in room ~ 30 ft x 2. informed pt that PT can dispense pt a FWW since hospitalist order one for him already. also informed that PT will talk to socially responsible investment adviser for his concerns. talked to socially responsible investment adviser regarding pt's DME needs ( iwalk and renewal of knee scooter rental), d/c concerns regarding stairs and pt/spouse frustrations with d/c needs. Called [facility] regarding Iwalk knee crutch and informed PT that they don' t carry that AD since insurance does not cover it. asked if L&I covers it and stated that they don't. PT dispensed pt a FWW and adjusted. pt ambulated with his FWW SBA ~ 20 ft x 2. no complaints. pt signed [employer] document for FWW and copy dispensed to pt. informed pt regarding iwalk knee crutch info provided by [employer] that insurance does not cover iwalk knee crutch. pt stated that L&I might consider and that they have a L&I musical instrument maker. informed pt that another way of getting into the house but might be restricted due to space concerns is to use a shower chair to sit on and pt needs to go sideways and pt needs to sit and stand with each step moving shower chair with each step. pt understood but might not have enough space to do that. spouse stated that she is also not comfortable using a shower chair for pt's showers since that are shower doors and will also not have enough space to put the shower chair. stated that she will give pt sponge baths. left pt with spouse. no other concerns. informed socially responsible investment adviser regarding Iwalk info provided by [employer]. Gait Assessment Gait Gait Assistance Required: Standby Assistance Distance (Feet) 30 Able to Maintain Weight Bearing Status Yes During Gait Assistive Devices Assistive Device Gait Belt,Front Wheeled Walker Orthotic/Prosthetic Devices or Brace: Yes Factors Limiting Gait Function Factors Limiting Gait Function Decreased Activity Tolerance, Decreased Strength,Limited Range of Motion,Pain,Poor Balance,Poor Safety Awareness PT-Balance Assessment Sitting Balance and Reactions Static Sitting Balance Ability Normal Dynamic Sitting Balance Ability Normal Standing Balance and Reactions Static Standing Balance Ability Good Dynamic Standing Balance Ability Fair Device Used FWW M5 PT-IP Objective Assessments Start: 10/14/24 15:51 Freq: NEEDED Status: Active Protocol: Document 10/14/24 14:30 AB (Rec: 10/14/24 16:35 AB [id number]) Orientation Orientation/Cognition Level of Alertness Alert Orientation Name,Age,Birthday,Month,Date, Year,Day of Week,Place, Situation Language Function Ability No Deficits Noted Safety Awareness Understands Safety Issues Memory Description No Deficits Noted Gross Range of Motion Lower Extremity ROM Impairments L ankle NT: with soft cast Strength Lower Extremity Strength Assessment Left Impaired Ankle NT: with soft case Muscle Tone Muscle Tone WNL Yes M6 PT-IP Treatment Start: 10/14/24 15:51 Freq: NEEDED Status: Active Protocol: Document 10/14/24 14:30 AB (Rec: 10/14/24 16:35 AB [id number]) Physical Therapy Treatment Education Education Provided Precautions,Weight Bearing Status,Safety M7 PT-IP Assessment and Plan Start: 10/14/24 15:51 Freq: NEEDED Status: Active Protocol: Document 10/14/24 14:30 AB (Rec: 10/14/24 16:35 AB [id number]) PT Summary Assessment and Plan Potential Rehabilitation Potential Good Status of Condition at Evaluation Stable Summary Impairments Pain,ROM,Strength,Balance, Sensation,Transfers,Gait, Activity Tolerance Assessment Summary pt is a 33 y/o M s/p L 2nd toe amputation POD1. pt is NWB on LLE. pt is modified independent with bed mobility and SBA with ambulation using knee scooter/FWW for safety. pt with stairs to enter the house but does not want to use crutches for stair climbing and stated that if he has an iwalk knee scooter he will be fine. pt wanting an iwalk knee crutch but is not available here in the hospital and is not available in our local DME suppliers. rehabilitation services coordinator aware of concerns and d/c needs. FWW dispensed to pt for home use. pt plans to go home with spouse to assist. Frequency of Treatment Frequency Of Treatment Discharge Treatment Plan Physical Therapy Treatment Plan Bed Mobility Training,Transfer Training,Gait Training, Therapeutic Exercise,Balance Retraining,Post Op Education, Discharge Planning,Hot or Cold Pack,Neuromuscular Re-ed, Coordination Retraining,Manual Therapy Weight Bearing Status Weight Bearing Status Non-Weight Bearing Allowed Weight Bearing Amount (enter % LLE NWB or #) (%) Recommendations To Nursing Amount of Assist Needed Standby Assistance Discharge Recommendations PT Discharge Recommendations Home with Assistance, Outpatient PT Transportation Needs at Discharge Wheelchair/Cabulance,Stretcher /Ambulance
--- NOTE | 2024-10-14 16:40 | PC.NURSE ---
IV removed. Discussed d/c instructions with pt. Pt confirmed that he had all of his belongings. Pt exited via w/c with SEISMIC INTERPRETER to private vehicle.
== END 2024-10-14 16:42 | disposition home or self-care (01) ==
LOC: OR 12:54 → AC 13:37
PROVIDERS: Nurse Anesthetist, Certified Registered; PCP Registered Nurse; Referring Provider Podiatrist Foot & Ankle Surgery; Visit Provider Podiatrist Foot & Ankle Surgery
PROC: (CPT 28820; principal; 2024-10-13 07:45)
DX: L97.528 Non-pressure chronic ulcer of other part of left foot with other specified severity (principal); I97.191 Other postprocedural cardiac functional disturbances following other surgery; I95.81 Postprocedural hypotension; Z87.891 Personal history of nicotine dependence; F11.20 Opioid dependence, uncomplicated; R82.5 Elevated urine levels of drugs, medicaments and biological substances; G89.18 Other acute postprocedural pain; Z86.14 Personal history of Methicillin resistant Staphylococcus aureus infection
CPT/HCPCS: 28820; 75635; 80053; 80305; 82550; 83880; 85025; 85651; 86140; 87070; 87075; 87101; 87205; 93005; 93010; 93970; 94002; 94762; 94799; 97116; 97161; 97530; J0131; J0171; J0330; J0692; J0878; J1100; J1171; J1642; J1650; J2250; J2405; J2704; J3010; Q9967